=== PATIENT | female | born 2000 | race Caucasian/White ===

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

== ENCOUNTER 2019-07-21 10:58 | Emergency (ER) | payer MEDICAID ==
--- NOTE | 2019-07-21 17:07 | EDM.PDOC ---
ED HPI GENERAL MEDICAL PROBLEM - General Chief Complaint: General Stated Complaint: 6 MON Time Seen by Provider: 07/21/19 11:00 Source of Information: Reports: Patient, Significant Other History Limitations: Reports: No Limitations - History of Present Illness INITIAL COMMENTS - FREE TEXT/NARRATIVE: This is a GA24wk F here for dizziness and nausea. She notes weakness. Denies any fever, no dysuria, no chills. Denies shortness of breath or chest pain. No discharge, or contractions or other pain. 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 ED EXAM, GENERAL - Physical Exam Exam: See Below Exam Limited By: No Limitations General Appearance: Alert, WD/WN, No Apparent Distress Eye Exam: Bilateral Eye: EOMI, PERRL Ears: Normal External Exam Nose: Normal Inspection Throat/Mouth: Normal Inspection Head: Atraumatic, Normocephalic Neck: Normal Inspection Respiratory/Chest: No Respiratory Distress, Lungs Clear, Normal Breath Sounds Cardiovascular: Normal Peripheral Pulses, Regular Rate, Rhythm, Other (FHR 135- 145) GI/Abdominal: Normal Bowel Sounds, Soft Back Exam: Normal Inspection Extremities: Normal Inspection Neurological: Alert, Oriented, CN II-XII Intact Psychiatric: Normal Affect, Normal Mood Course - Vital Signs Last Recorded V/S: Last Vital Signs Temp 36.6 C 07/21/19 11:18 Pulse 84 07/21/19 11:18 Resp 16 07/21/19 11:18 BP 124/65 07/21/19 11:18 Pulse Ox 100 07/21/19 11:18 - Orders/Labs/Meds Orders: Active Orders 24 hr Category Date Time Status CULTURE URINE [RM] Stat Lab 07/21/19 12:20 Received Labs: Laboratory Tests 07/21/19 07/21/19 07/21/19 Range/Units 12:20 12:20 12:20 WBC 10.7 (4.0-11.0) K/uL RBC 3.75 L (3.80-5.80) M/uL Hgb 11.4 L (11.5-16.5) g/dL Hct 33.9 L (37.0-47.0) % MCV 90 (76-96) fL MCH 30.4 (27.0-32.0) pg MCHC 33.6 (31.0-35.0) g/dL RDW 12.9 (11.0-16.0) % Plt Count 284 (150-500) K/uL MPV 10.4 H (6.0-10.0) fL Neut % (Auto) 79.4 H (45.0-70.0) % Lymph % (Auto) 13.0 L (20.0-40.0) % [place] % (Auto) 7.1 (3.0-10.0) % Eos % (Auto) 0.3 L (1.0-5.0) % Baso % (Auto) 0.2 (0.0-0.5) % Neut # (Auto) 8.50 H (2.00-7.50) K/uL Lymph # (Auto) 1.39 L (1.50-4.00) K/uL [place] # (Auto) 0.76 (0.20-0.80) K/uL Eos # (Auto) 0.03 L (0.04-0.40) K/uL Baso # (Auto) 0.02 (0.02-0.10) K/uL Sodium 139 (136-145) mmol/L Potassium 3.2 L (3.5-5.1) mmol/L Chloride 105 (98-107) mmol/L Carbon Dioxide 24.8 (21.0-32.0) mmol/L Anion Gap 12.4 (5.0-15.0) mmol/L BUN 8 (8-26) mg/dL Creatinine 0.56 (0.55-1.02) mg/dL Est Cr Clr Drug Dosing 155.04 mL/min Estimated GFR (MDRD) > 60 (>60) MLS/MIN BUN/Creatinine Ratio 14.3 (6-25) Glucose 76 (74-100) mg/dL Calcium 9.4 (8.5-10.1) mg/dL Total Bilirubin 0.5 (0.0-1.0) mg/dL AST 15 (15-37) U/L ALT 15 (12-78) U/L Alkaline Phosphatase 60 (46-116) U/L Total Protein 6.1 L (6.4-8.2) g/dL Albumin 2.5 L (3.4-5.0) g/dL Globulin 3.6 (2.2-4.2) g/dL Albumin/Globulin Ratio 0.7 L (0.8-2.0) Urine Color Yellow Urine Appearance Clear (CLEAR) Urine pH 7.0 (5.0-8.0) Ur Specific [place] 1.015 (1.003-1.030) Urine Protein Negative (NEGATIVE) mg/dL Urine Glucose (UA) Negative (NEGATIVE) mg/dL Urine Ketones Negative (NEGATIVE) mg/dL Urine Occult Blood Trace-intact H (NEGATIVE) Urine Nitrite Negative (NEGATIVE) Urine Bilirubin Negative (NEGATIVE) Urine Urobilinogen 1.0 (0.2-1.0) E.U./dL Ur Leukocyte Esterase Moderate H (NEGATIVE) Urine RBC 0-5 H /HPF Urine WBC 10-20 H /HPF Ur Squamous Epith Cells Many /HPF Urine Bacteria Occasional /HPF Departure - Departure Time of Disposition: 14:30 Disposition: Home, Self-Care 01 Condition: Good Clinical Impression: Hypokalemia, Vertigo UTI (urinary tract infection) Qualifiers: Urinary tract infection type: acute cystitis Hematuria presence: without hematuria Qualified Code(s): N30.00 - Acute cystitis without hematuria - Discharge Information Prescriptions: cephALEXin [Keflex] 500 mg PO BID #10 cap Instructions: and Urinary Tract Infection Referrals: PCP,None [Primary Care Provider] - Forms: ED Department Discharge Care Plan Goals: Take medications as prescribed. Follow up with primary provider as scheduled. Return or call with any questions or concerns. Sepsis Event Note - Evaluation Sepsis Screening Result: No Definite Risk - Focused Exam Vital Signs: Vital Signs Temp Pulse Resp BP Pulse Ox 07/21/19 11:18 36.6 C 84 16 124/65 100 Date Exam was Performed: 07/21/19 Time Exam was Performed: 17:04 - Problem List & Annotations (1) Hypokalemia SNOMED Code(s): 27108552 Code(s): E87.6 - HYPOKALEMIA Status: Acute (2) UTI (urinary tract infection) SNOMED Code(s): 96482571 Code(s): N39.0 - URINARY TRACT INFECTION, SITE NOT SPECIFIED Status: Acute Qualifiers: Urinary tract infection type: acute cystitis Hematuria presence: without hematuria Qualified Code(s): N30.00 - Acute cystitis without hematuria (3) Vertigo SNOMED Code(s): 844394139 Code(s): R42 - DIZZINESS AND GIDDINESS Status: Acute - Problem List Review Problem List Initiated/Reviewed/Updated: Yes - My Orders Last 24 Hours: My Active Orders 07/21/19 12:20 CULTURE URINE [RM] Stat - Assessment/Plan Last 24 Hours: My Active Orders 07/21/19 12:20 CULTURE URINE [RM] Stat Plan: Counseled on antibiotics and side effects. Discussed f/u with OB and PCP chucky. Discussed rtc or ER if symptoms return or worsen. F/u as needed. Continue [facility] care.
== END 2019-07-21 13:53 | disposition home or self-care (01) ==
LOC: LB.ED 10:58
DX: O23.13 Infections of bladder in pregnancy, third trimester (principal); O99.283 Endocrine, nutritional and metabolic diseases complicating pregnancy, third trimester; E87.6 Hypokalemia; R42 Dizziness and giddiness; Z87.891 Personal history of nicotine dependence; Z91.030 Bee allergy status; Z3A.25 25 weeks gestation of pregnancy
CPT/HCPCS: 36415; 80053; 81001; 85025; 87086; 99283; 99284

== ENCOUNTER 2020-08-16 22:41 | Emergency (ER) | payer MEDICAID ==
[~2020-08-16 22:41] MED LIST: traMADol 50 MG Tab ONE
[2020-08-16] MEDS: GI Cocktail Oral Solution 30 ML PO ONE (23:17)
[2020-08-16] MEDS: Ketorolac 30 MG/ML SDV IM ONE (23:56)
[2020-08-17] MEDS: Ketorolac 30 MG/ML SDV ONE (00:40)
[2020-08-17] MEDS: Pantoprazole 40 MG Tab.CR PO SCH (00:45)
[2020-08-17] MEDS: Dicyclomine 10 MG Cap PO ONE (00:46)
--- NOTE | 2020-08-17 09:04 | EDM.PDOC ---
ED HPI GENERAL MEDICAL PROBLEM - General Chief Complaint: Abdominal Pain Stated Complaint: Abdominal Pain Time Seen by Provider: 08/16/20 23:00 Source of Information: Reports: Patient History Limitations: Reports: No Limitations - History of Present Illness INITIAL COMMENTS - FREE TEXT/NARRATIVE: A 19 y/o fe pt to ER with c/o mid lower epigastric pain & right hypochondrium x 2 months that is getting worse. Rates pain 8/10. Pt states she was seen a while ago in [place] and was told it was GERD and to watch her diet and take antacids. The pain was dull located & non radiating.Nothing makes pain better Or worse Pt has been not eating greasy foods and taking tyl Motrin and Tums without relief. Pt states she also has been taking Pepto Bismol and Milk of magnesia without any relief. Denies any fever ,nausea ,vomiting ,abdominal pain ,chest pain ,shortness of breath,urinary complain Onset: Today, Sudden Duration: Week(s): (8) Location: Reports: Abdomen Quality: Reports: Dull Severity: Moderate Improves with: Reports: None Worsens with: Reports: None Associated Symptoms: Reports: No Other Symptoms Middle Abdomen Pain Score (Numeric/FACES): 8 - Related Data Allergies Allergy/AdvReac Type Severity Reaction Status Date / Time venom-honey bee Allergy Anaphylactic Verified 08/16/20 23:27 [bee venom (honey bee)] Shock Home Meds: Home Meds NK [No Known Home Meds] 08/16/20 [History] Past Medical History Gastrointestinal History: Reports: GERD 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: pt is 6 months today, pt comes to ER with CO dizziness and feeling light headed Social & Family History - Tobacco Use Tobacco Use Status *Q: Never Tobacco User Packs/Tins Daily: 0.5 - Caffeine Use Caffeine Use: Reports: Soda - Recreational Drug Use Recreational Drug Use: No Recreational Drug Type: Reports: Marijuana/Hashish Recreational Drug Use Frequency: Weekly - Living Situation & Occupation Living situation: Reports: with Family Occupation: Student ED ROS GENERAL - Review of Systems Review Of Systems: See Below Constitutional: Reports: No Symptoms Respiratory: Reports: No Symptoms, Shortness of Breath, Cough, Hemoptysis Cardiovascular: Reports: No Symptoms, Chest Pain, Dyspnea on Exertion, Edema GI/Abdominal: Reports: Abdominal Pain Musculoskeletal: Reports: No Symptoms, Neck Pain, Arm Pain Skin: Reports: No Symptoms Neurological: Reports: No Symptoms ED EXAM, GENERAL - Physical Exam Exam: See Below Exam Limited By: No Limitations General Appearance: Alert, WD/WN, No Apparent Distress Head: Atraumatic, Normocephalic Respiratory/Chest: No Respiratory Distress, Lungs Clear, Normal Breath Sounds Cardiovascular: Normal Peripheral Pulses, Regular Rate, Rhythm, No Edema, No Gallop GI/Abdominal: Other (tenderness on lower epigastrium ) Extremities: Normal Inspection, Normal Range of Motion Neurological: Alert, Oriented, CN II-XII Intact Course - Vital Signs Text/Narrative:: 23 year old female w/known h/o GERD came with epigastric pain vital ordered labs ordered CT of abd ordered & revewed urine was positive for Marijuana Injection Toradol i/m given she was not feeling better Spoke with Howard villegas provider , he advised to discharge her home on Protonix,bentyl & pain medication f/u with primary care Disposition-she was discharge home F/U with primary care Last Recorded V/S: Last Vital Signs Temp 98 F 08/16/20 22:57 Pulse 74 08/16/20 22:57 Resp 18 08/16/20 22:57 BP 130/91 H 08/16/20 22:57 Pulse Ox 100 08/16/20 22:57 - Orders/Labs/Meds Orders: Active Orders 24 hr Category Date Time Status Abdomen Pelvis wo Cont [CT] Stat Exams 08/16/20 23:14 Taken Labs: Laboratory Tests 08/16/20 08/16/20 08/16/20 Range/Units 23:13 23:14 23:30 WBC 7.4 D (4.0-11.0) K/uL RBC 4.49 (3.80-5.80) M/uL Hgb 13.3 (11.5-16.5) g/dL Hct 39.6 (37.0-47.0) % MCV 88 (76-96) fL MCH 29.6 (27.0-32.0) pg MCHC 33.6 (31.0-35.0) g/dL RDW 12.6 (11.0-16.0) % Plt Count 248 (150-500) K/uL MPV 10.6 H (6.0-10.0) fL Neut % (Auto) 54.6 (45.0-70.0) % Lymph % (Auto) 36.0 (20.0-40.0) % [place] % (Auto) 8.0 (3.0-10.0) % Eos % (Auto) 0.9 L (1.0-5.0) % Baso % (Auto) 0.5 (0.0-0.5) % Neut # (Auto) 4.02 (2.00-7.50) K/uL Lymph # (Auto) 2.65 (1.50-4.00) K/uL [place] # (Auto) 0.59 (0.20-0.80) K/uL Eos # (Auto) 0.07 (0.04-0.40) K/uL Baso # (Auto) 0.04 (0.02-0.10) K/uL Sodium 141 (136-145) mmol/L Potassium 4.0 D (3.5-5.1) mmol/L Chloride 105 (98-107) mmol/L Carbon Dioxide 29.1 (21.0-32.0) mmol/L Anion Gap 10.9 (5.0-15.0) mmol/L BUN 12 D (8-26) mg/dL Creatinine 0.89 D (0.55-1.02) mg/dL Est Cr Clr Drug Dosing 93.86 mL/min Estimated GFR (MDRD) > 60 (>60) MLS/MIN BUN/Creatinine Ratio 13.5 (6-25) Glucose 96 (74-100) mg/dL Calcium 8.5 (8.5-10.1) mg/dL Total Bilirubin 0.5 (0.0-1.0) mg/dL AST 13 L (15-37) U/L ALT 21 (12-78) U/L Alkaline Phosphatase 65 (46-116) U/L Total Protein 6.9 (6.4-8.2) g/dL Albumin 3.6 (3.4-5.0) g/dL Globulin 3.3 (2.2-4.2) g/dL Albumin/Globulin Ratio 1.1 (0.8-2.0) Lipase 163 (73-393) U/L Urine Color Urine Appearance (CLEAR) Urine pH (5.0-8.0) Ur Specific [place] (1.003-1.030) Urine Protein (NEGATIVE) mg/dL Urine Glucose (UA) (NEGATIVE) mg/dL Urine Ketones (NEGATIVE) mg/dL Urine Occult Blood (NEGATIVE) Urine Nitrite (NEGATIVE) Urine Bilirubin (NEGATIVE) Urine Urobilinogen (0.2-1.0) E.U./dL Ur Leukocyte Esterase (NEGATIVE) Urine HCG, Qual Negative (NEGATIVE) Urine Opiates Screen (NEGATIVE) Ur Oxycodone Screen (NEGATIVE) Urine Methadone Screen (NEGATIVE) Ur Barbiturates Screen (NEGATIVE) Ur Tricyclics Screen (NEGATIVE) Ur Phencyclidine Scrn (NEGATIVE) Ur Amphetamine Screen (NEGATIVE) U Methamphetamines Scrn (NEGATIVE) Urine MDMA Screen (NEGATIVE) U Benzodiazepines Scrn (NEGATIVE) U Cocaine Metab Screen (NEGATIVE) U Marijuana (THC) Screen (NEGATIVE) 08/16/20 08/16/20 Range/Units 23:30 23:33 WBC (4.0-11.0) K/uL RBC (3.80-5.80) M/uL Hgb (11.5-16.5) g/dL Hct (37.0-47.0) % MCV (76-96) fL MCH (27.0-32.0) pg MCHC (31.0-35.0) g/dL RDW (11.0-16.0) % Plt Count (150-500) K/uL MPV (6.0-10.0) fL Neut % (Auto) (45.0-70.0) % Lymph % (Auto) (20.0-40.0) % [place] % (Auto) (3.0-10.0) % Eos % (Auto) (1.0-5.0) % Baso % (Auto) (0.0-0.5) % Neut # (Auto) (2.00-7.50) K/uL Lymph # (Auto) (1.50-4.00) K/uL [place] # (Auto) (0.20-0.80) K/uL Eos # (Auto) (0.04-0.40) K/uL Baso # (Auto) (0.02-0.10) K/uL Sodium (136-145) mmol/L Potassium (3.5-5.1) mmol/L Chloride (98-107) mmol/L Carbon Dioxide (21.0-32.0) mmol/L Anion Gap (5.0-15.0) mmol/L BUN (8-26) mg/dL Creatinine (0.55-1.02) mg/dL Est Cr Clr Drug Dosing mL/min Estimated GFR (MDRD) (>60) MLS/MIN BUN/Creatinine Ratio (6-25) Glucose (74-100) mg/dL Calcium (8.5-10.1) mg/dL Total Bilirubin (0.0-1.0) mg/dL AST (15-37) U/L ALT (12-78) U/L Alkaline Phosphatase (46-116) U/L Total Protein (6.4-8.2) g/dL Albumin (3.4-5.0) g/dL Globulin (2.2-4.2) g/dL Albumin/Globulin Ratio (0.8-2.0) Lipase (73-393) U/L Urine Color Yellow Urine Appearance Clear (CLEAR) Urine pH 6.0 (5.0-8.0) Ur Specific [place] >= 1.030 (1.003-1.030) Urine Protein Negative (NEGATIVE) mg/dL Urine Glucose (UA) Negative (NEGATIVE) mg/dL Urine Ketones Negative (NEGATIVE) mg/dL Urine Occult Blood Negative (NEGATIVE) Urine Nitrite Negative (NEGATIVE) Urine Bilirubin Negative (NEGATIVE) Urine Urobilinogen 1.0 (0.2-1.0) E.U./dL Ur Leukocyte Esterase Negative (NEGATIVE) Urine HCG, Qual (NEGATIVE) Urine Opiates Screen Negative (NEGATIVE) Ur Oxycodone Screen Negative (NEGATIVE) Urine Methadone Screen Negative (NEGATIVE) Ur Barbiturates Screen Negative (NEGATIVE) Ur Tricyclics Screen Negative (NEGATIVE) Ur Phencyclidine Scrn Negative (NEGATIVE) Ur Amphetamine Screen Negative (NEGATIVE) U Methamphetamines Scrn Negative (NEGATIVE) Urine MDMA Screen Negative (NEGATIVE) U Benzodiazepines Scrn Negative (NEGATIVE) U Cocaine Metab Screen Negative (NEGATIVE) U Marijuana (THC) Screen Positive H (NEGATIVE) Meds: Medications Discontinued Medications Generic Name Dose Route Start Last Admin Trade Name Freq PRN Reason Stop Dose Admin Al Hydroxide/Mg Hydroxide 30 ml 08/16/20 23:15 08/16/20 23:17 Gi Cocktail PO 08/16/20 23:16 30 ml ONETIME ONE Administration Dicyclomine HCl 10 mg 08/17/20 00:40 08/17/20 00:46 Bentyl PO 08/17/20 00:41 Not Given ONETIME ONE Ketorolac Tromethamine 15 mg 08/16/20 23:51 08/16/20 23:56 Toradol IM 08/16/20 23:52 15 mg ONETIME ONE Administration Ketorolac Tromethamine Confirm 08/17/20 00:02 08/17/20 00:40 Toradol Administered 08/17/20 00:03 Not Given Dose 30 mg .ROUTE .STK-MED ONE Pantoprazole Sodium 40 mg 08/17/20 00:45 08/17/20 00:45 Protonix PO 40 mg DAILY MARTIN Administration Departure - Departure Time of Disposition: 22:00 Disposition: Home, Self-Care 01 Clinical Impression: Epigastric pain determined by examination Abdominal pain Qualifiers: Abdominal location: epigastric Qualified Code(s): R10.13 - Epigastric pain - Discharge Information *PRESCRIPTION DRUG MONITORING PROGRAM REVIEWED*: No *COPY OF PRESCRIPTION DRUG MONITORING REPORT IN PATIENT ROLDAN: No Instructions: Abdominal Pain, Adult, [id number] Referrals: PCP,None [Primary Care Provider] - Forms: ED Department Discharge Care Plan Goals: take protonix and [place] as directed. Follow up with your primary team primary care physician as needed. Sepsis Event Note (ED) - Evaluation Sepsis Screening Result: No Definite Risk - Problem List & Annotations (1) Epigastric abdominal pain SNOMED Code(s): 76231365 Code(s): R10.13 - EPIGASTRIC PAIN Status: Acute Priority: Medium Onset Date: ~08/16/20 - Problem List Review Problem List Initiated/Reviewed/Updated: No - Assessment/Plan Plan: F/u primary care avoid spicy diet RT to ED if pain persist
--- NOTE | 2020-08-19 07:15 | CT ---
Date of Service: 08/16/20 Clinical Data: abd pain UNENHANCED ABDOMEN AND PELVIC CT: Multislice acquisition through the abdomen and pelvis without IV or oral contrast was performed. Comparison is made to a prior exam dated 10/12/14. The lung bases are clear. The heart size is normal. The unenhanced liver appears normal. The gallbladder is contracted. No calcified gallstones noted. The spleen appears normal. The pancreas appears normal. The right and left adrenals appear normal. The is a 2 mm nonobstructing renal calculus on the lower pole of the right kidney. The right and left kidneys otherwise appear normal. No hydronephrosis or hydroureter. The bladder is partially fluid filled. There is apparent diffuse bladder wall thickening. This may be related to nondistention. Cystitis should be considered. No evidence of appendicitis. No free air. There is a small amount of free fluid in the pelvis. No dilated loops of bowel. No adenopathy. No aortic aneurysm. No other significant findings. [id number] [facility]
== END 2020-08-17 01:01 | disposition home or self-care (01) ==
LOC: LB.ED 22:41
DX: O99.891 Other specified diseases and conditions complicating pregnancy (principal); R10.13 Epigastric pain; Z91.030 Bee allergy status; Z72.0 Tobacco use
CPT/HCPCS: 36415; 74176; 80053; 80307; 81003; 81025; 83690; 85025; 96372; 99284; A9270; J1885; 99283

== ENCOUNTER 2020-09-06 22:05 | Emergency (ER) | payer MEDICAID ==
[2020-09-06] MEDS ORDERED: Sodium Chloride 0.9% 10 ML Syringe FLUSH PRN (22:07)
[2020-09-06] MEDS ORDERED: Sodium Chloride 0.9% 50 ML SDV FLUSH ONE (22:26)
[2020-09-06] MEDS ORDERED: Iopamidol 612 MG/ML 100 ML Bottle IV SCH (22:30)
[2020-09-06] MEDS ORDERED: Acetaminophen/HYDROcodone 325-5 MG Tab PO ONE (22:36)
[2020-09-06] MEDS ORDERED: hydrOXYzine HCl 25 MG Tab PO ONE (22:36)
[2020-09-06] MEDS ORDERED: Dicyclomine 20 MG/2 ML SDV IM ONE (22:36)
--- NOTE | 2020-09-06 22:50 | EDM.PDOC ---
ED HPI GENERAL MEDICAL PROBLEM - General Chief Complaint: Gastrointestinal Problem Stated Complaint: ABDOMINAL PAIN Time Seen by Provider: 09/06/20 22:30 Source of Information: Reports: Patient, Old Records, RN History Limitations: Reports: No Limitations - History of Present Illness INITIAL COMMENTS - FREE TEXT/NARRATIVE: 19 YOHHF here for recurring mid to upper abdominal pain. Patient was recently seen and treated here in the ED 3 weeks ago for the same issue. She failed to follow provider treatment plan and quit taking medications prescribed. She has inspiratory and expiratory wheezing, Normal HRR. No Fever, N, V. No guarding or rebound tenderness. No cough or chest congestion. No ANDRADE. 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) (improved diet, OTC antiacids) Lower Abdomen Pain Score (Numeric/FACES): 7 Abdomen Pain Score (Numeric/FACES): 7 - Related Data Allergies Allergy/AdvReac Type Severity Reaction Status Date / Time venom-honey bee Allergy Anaphylactic Verified 08/16/20 23:27 [bee venom (honey bee)] Shock Home Meds: Home Meds NK [No Known Home Meds] 08/16/20 [History] Past Medical History Gastrointestinal History: Reports: GERD 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 GI/Abdominal: Reports: Abdominal Pain, Decreased Appetite ED EXAM, GI/ABD - Physical Exam Exam: See Below Exam Limited By: No Limitations General Appearance: Alert, WD/WN, No Apparent Distress Ears: Normal External Exam Nose: Normal Inspection, Normal Mucosa Throat/Mouth: Normal Inspection, Normal Lips, Normal Teeth Head: Atraumatic, Normocephalic Neck: Normal Inspection, Supple, Non-Tender Respiratory/Chest: No Respiratory Distress, Lungs Clear, Normal Breath Sounds Cardiovascular: Normal Peripheral Pulses, Regular Rate, Rhythm, No Edema GI/Abdominal Exam: Normal Bowel Sounds, Soft, Non-Tender, No Distention Back Exam: Normal Inspection, Full Range of Motion Extremities: Normal Inspection, Normal Range of Motion, Non-Tender Neurological: Alert, Oriented, CN II-XII Intact Psychiatric: Normal Affect, Normal Mood Skin Exam: Warm, Dry, Intact, Normal Color Lymphatic: No Adenopathy Course - Vital Signs Last Recorded V/S: Last Vital Signs Temp 36.6 C 09/06/20 22:58 Pulse 84 09/06/20 22:58 Resp 18 09/06/20 22:58 BP 111/75 09/06/20 22:58 Pulse Ox 100 09/06/20 22:58 - Orders/Labs/Meds Orders: Active Orders 24 hr Category Date Time Status Abdomen Pelvis w Cont [CT] Stat Exams 09/06/20 22:05 Ordered Chest 2V [CR] Stat Exams 09/06/20 22:47 Taken HEPATITIS PANEL (4) Stat Lab 09/06/20 23:18 Ordered Iopamidol [Isovue-300 (61%)] Med 09/06/20 22:30 Active 100 ml IV . DIRECTED Sodium Chloride 0.9% [Saline Flush] Med 09/06/20 22:07 Active 10 ml FLUSH ASDIRECTED PRN Peripheral IV Insertion Adult [OM.PC] Routine Oth 09/06/20 22:07 Ordered Medication Orders Iopamidol (Isovue-300 (61%)) 100 ml IV . DIRECTED MARTIN Last Admin: 09/06/20 22:36 Dose: 100 ml Documented by: JANE Sodium Chloride (Saline Flush) 10 ml FLUSH ASDIRECTED PRN PRN Reason: Keep Vein Open Labs: Laboratory Tests 09/06/20 09/06/20 09/06/20 Range/Units 22:15 22:15 22:25 WBC 7.3 (4.0-11.0) K/uL RBC 4.56 (3.80-5.80) M/uL Hgb 13.7 (11.5-16.5) g/dL Hct 40.6 (37.0-47.0) % MCV 89 (76-96) fL MCH 30.0 (27.0-32.0) pg MCHC 33.7 (31.0-35.0) g/dL RDW 12.6 (11.0-16.0) % Plt Count 219 (150-500) K/uL MPV 10.8 H (6.0-10.0) fL Neut % (Auto) 63.2 (45.0-70.0) % Lymph % (Auto) 25.7 (20.0-40.0) % Bee % (Auto) 9.8 (3.0-10.0) % Eos % (Auto) 1.0 (1.0-5.0) % Baso % (Auto) 0.3 (0.0-0.5) % Neut # (Auto) 4.62 (2.00-7.50) K/uL Lymph # (Auto) 1.88 (1.50-4.00) K/uL Bee # (Auto) 0.72 (0.20-0.80) K/uL Eos # (Auto) 0.07 (0.04-0.40) K/uL Baso # (Auto) 0.02 (0.02-0.10) K/uL Sodium 141 (136-145) mmol/L Potassium 3.4 L (3.5-5.1) mmol/L Chloride 105 (98-107) mmol/L Carbon Dioxide 29.4 (21.0-32.0) mmol/L Anion Gap 10.0 (5.0-15.0) mmol/L BUN 10 (8-26) mg/dL Creatinine 0.87 (0.55-1.02) mg/dL Est Cr Clr Drug Dosing TNP Estimated GFR (MDRD) > 60 (>60) MLS/MIN BUN/Creatinine Ratio 11.5 (6-25) Glucose 83 (74-100) mg/dL Calcium 9.0 (8.5-10.1) mg/dL Total Bilirubin 0.5 (0.0-1.0) mg/dL AST 14 L (15-37) U/L ALT 18 (12-78) U/L Alkaline Phosphatase 75 (46-116) U/L Total Protein 7.5 (6.4-8.2) g/dL Albumin 3.8 (3.4-5.0) g/dL Globulin 3.7 (2.2-4.2) g/dL Albumin/Globulin Ratio 1.0 (0.8-2.0) Urine Color Yellow Urine Appearance Cloudy (CLEAR) Urine pH 7.5 (5.0-8.0) Ur Specific [place] 1.025 (1.003-1.030) Urine Protein Negative (NEGATIVE) mg/dL Urine Glucose (UA) Negative (NEGATIVE) mg/dL Urine Ketones Negative (NEGATIVE) mg/dL Urine Occult Blood Negative (NEGATIVE) Urine Nitrite Negative (NEGATIVE) Urine Bilirubin Small H (NEGATIVE) Urine Urobilinogen 4.0 H (0.2-1.0) E.U./dL Ur Leukocyte Esterase Trace H (NEGATIVE) Urine RBC Not seen /HPF Urine WBC 5-10 H /HPF Ur Squamous Epith Cells Moderate /HPF Amorphous Sediment Moderate /HPF Urine Bacteria Few /HPF Urine HCG, Qual (NEGATIVE) 09/06/20 Range/Units 22:25 WBC (4.0-11.0) K/uL RBC (3.80-5.80) M/uL Hgb (11.5-16.5) g/dL Hct (37.0-47.0) % MCV (76-96) fL MCH (27.0-32.0) pg MCHC (31.0-35.0) g/dL RDW (11.0-16.0) % Plt Count (150-500) K/uL MPV (6.0-10.0) fL Neut % (Auto) (45.0-70.0) % Lymph % (Auto) (20.0-40.0) % Bee % (Auto) (3.0-10.0) % Eos % (Auto) (1.0-5.0) % Baso % (Auto) (0.0-0.5) % Neut # (Auto) (2.00-7.50) K/uL Lymph # (Auto) (1.50-4.00) K/uL Bee # (Auto) (0.20-0.80) K/uL Eos # (Auto) (0.04-0.40) K/uL Baso # (Auto) (0.02-0.10) K/uL Sodium (136-145) mmol/L Potassium (3.5-5.1) mmol/L Chloride (98-107) mmol/L Carbon Dioxide (21.0-32.0) mmol/L Anion Gap (5.0-15.0) mmol/L BUN (8-26) mg/dL Creatinine (0.55-1.02) mg/dL Est Cr Clr Drug Dosing Estimated GFR (MDRD) (>60) MLS/MIN BUN/Creatinine Ratio (6-25) Glucose (74-100) mg/dL Calcium (8.5-10.1) mg/dL Total Bilirubin (0.0-1.0) mg/dL AST (15-37) U/L ALT (12-78) U/L Alkaline Phosphatase (46-116) U/L Total Protein (6.4-8.2) g/dL Albumin (3.4-5.0) g/dL Globulin (2.2-4.2) g/dL Albumin/Globulin Ratio (0.8-2.0) Urine Color Urine Appearance (CLEAR) Urine pH (5.0-8.0) Ur Specific [place] (1.003-1.030) Urine Protein (NEGATIVE) mg/dL Urine Glucose (UA) (NEGATIVE) mg/dL Urine Ketones (NEGATIVE) mg/dL Urine Occult Blood (NEGATIVE) Urine Nitrite (NEGATIVE) Urine Bilirubin (NEGATIVE) Urine Urobilinogen (0.2-1.0) E.U./dL Ur Leukocyte Esterase (NEGATIVE) Urine RBC /HPF Urine WBC /HPF Ur Squamous Epith Cells /HPF Amorphous Sediment /HPF Urine Bacteria /HPF Urine HCG, Qual Negative (NEGATIVE) Meds: Medications Generic Name Dose Route Start Last Admin Trade Name Freq PRN Reason Stop Dose Admin Iopamidol 100 ml 09/06/20 22:30 09/06/20 22:36 Isovue-300 (61%) IV 100 ml . DIRECTED MARTIN Administration Sodium Chloride 10 ml 09/06/20 22:07 Saline Flush FLUSH ASDIRECTED PRN Keep Vein Open Discontinued Medications Generic Name Dose Route Start Last Admin Trade Name Freq PRN Reason Stop Dose Admin Hydrocodone Bitart/Acetaminophen 1 tab 09/06/20 22:36 09/06/20 22:35 [place] 325-5 Mg PO 09/06/20 22:37 1 tab ONETIME ONE Administration Dicyclomine HCl 20 mg 09/06/20 22:36 09/06/20 22:53 Bentyl IM 09/06/20 22:37 Not Given ONETIME ONE Hydroxyzine HCl 25 mg 09/06/20 22:36 09/06/20 22:45 Atarax PO 09/06/20 22:37 25 mg ONETIME ONE Administration Pantoprazole Sodium 40 mg 09/06/20 22:54 09/06/20 22:51 Protonix Iv IVPUSH 09/06/20 22:55 40 mg ONETIME ONE Administration Sodium Chloride 50 ml 09/06/20 22:26 09/06/20 22:36 Normal Saline FLUSH 09/06/20 22:27 50 ml ONETIME ONE Administration Departure - Departure Time of Disposition: 23:30 Disposition: Home, Self-Care 01 Condition: Good Clinical Impression: Inflammatory liver disease, unspecified IBS (irritable bowel syndrome) Qualifiers: Irritable bowel syndrome type: with diarrhea Qualified Code(s): K58.0 - Irritable bowel syndrome with diarrhea - Discharge Information *PRESCRIPTION DRUG MONITORING PROGRAM REVIEWED*: Not Applicable Instructions: Irritable Bowel Syndrome, Adult Forms: ED Department Discharge Additional Instructions: Continue with Protonix and Bentyl. Ultram for pain. Continue healthy diet, and increase water intake. Follow up with PCP or GI as OP. RT to ED for new or worsening symptoms. Gastroenterology specialist evaluation is highly recommended based off labs. Sepsis Event Note (ED) - Focused Exam Vital Signs: Vital Signs Temp Pulse Resp BP Pulse Ox 09/06/20 22:58 36.6 C 84 18 111/75 100 - My Orders Last 24 Hours: My Active Orders 09/06/20 22:05 Abdomen Pelvis w Cont [CT] Stat 09/06/20 22:07 Sodium Chloride 0.9% [Saline Flush] 10 ml FLUSH ASDIRECTED PRN Peripheral IV Insertion Adult [OM.PC] Routine 09/06/20 22:30 Iopamidol [Isovue-300 (61%)] 100 ml IV . DIRECTED 09/06/20 22:47 Chest 2V [CR] Stat 09/06/20 23:18 HEPATITIS PANEL (4) Stat - Assessment/Plan Last 24 Hours: My Active Orders 09/06/20 22:05 Abdomen Pelvis w Cont [CT] Stat 09/06/20 22:07 Sodium Chloride 0.9% [Saline Flush] 10 ml FLUSH ASDIRECTED PRN Peripheral IV Insertion Adult [OM.PC] Routine 09/06/20 22:30 Iopamidol [Isovue-300 (61%)] 100 ml IV . DIRECTED 09/06/20 22:47 Chest 2V [CR] Stat 09/06/20 23:18 HEPATITIS PANEL (4) Stat Assessment:: IBS Plan: Lesa Echeverria.
[2020-09-06] MEDS ORDERED: Pantoprazole 40 MG Vial IVPUSH ONE (22:54)
[2020-09-06] MEDS ORDERED: Morphine 2 MG/ML SYRINGE IVPUSH ONE (23:57)
--- NOTE | 2020-09-07 14:54 | CT ---
CLINICAL DATA: Abdominal pain. ENHANCED ABDOMEN AND PELVIC CT, 06 SEPTEMBER 2020: Multislice acquisition through the abdomen and pelvis with IV, but without oral contrast was performed. No priors. The lung bases are clear. The heart size is normal. The liver is normal size with homogeneous attenuation. No focal hepatic lesions. The gallbladder appears normal. No biliary duct dilatation. The spleen appears normal. The pancreas appears normal. The right and left adrenals appear normal. The right and left kidneys appear normal and enhance symmetrically. No hydronephrosis or hydroureter. There is a small amount of fluid within the bladder. There is diffuse bladder wall thickening. This may be related to non-distention. Cystitis should be considered. The appendix is not clearly seen. No evidence of appendicitis. There is a large amount of stool noted within the cecum, ascending colon, and transverse colon. No free air. No free fluid. No dilated loops of bowel. No adenopathy. No aortic aneurysm or dissection. No other significant findings. Job: [id number] [facility]
--- NOTE | 2020-09-07 14:56 | CR ---
CLINICAL DATA: Abdominal pain. PA AND LATERAL CHEST, 06 SEPTEMBER 2020: The heart size is normal. The lungs are clear. No pneumothorax. No pleural effusions. No evidence of acute intrathoracic disease. Job: [id number] [facility]
[2020-09-11 14:09] LABS: HBSAG SCREEN Negative (Negative); HEP A AB, IGM Negative (Negative); HEP B CORE AB, IGM Negative (Negative); HEP C VIRUS AB <0.1 s/co ratio (0.0-0.9)
== END 2020-09-06 23:55 | disposition home or self-care (01) ==
LOC: LB.ED 22:05
DX: K58.0 Irritable bowel syndrome with diarrhea (principal); K75.9 Inflammatory liver disease, unspecified; Z91.030 Bee allergy status
CPT/HCPCS: 36415; 71046; 74177; 80053; 80074; 81001; 81025; 85025; 96374; 96375; 99284; 99284-25; A9270-GY; C9113; J2270; Q9967

== ENCOUNTER 2021-02-17 11:24 | Emergency (ER) | payer MEDICAID ==
[2021-02-17] MEDS ORDERED: Sodium Chloride 0.9% 10 ML Syringe FLUSH PRN (11:49)
--- NOTE | 2021-02-17 11:52 | EDM.PDOC ---
ED HPI GENERAL MEDICAL PROBLEM - General Chief Complaint: General Stated Complaint: STOMACH PAIN AND Time Seen by Provider: 02/17/21 11:35 Source of Information: Reports: Patient History Limitations: Reports: No Limitations - History of Present Illness INITIAL COMMENTS - FREE TEXT/NARRATIVE: patient presented to the ER with a c/o nausea/emesis for 1 weeks. She is 18 weeks . no fever or chills. no diarrhea or loose stool. Reports similar problems with her first . no SOB or cough. 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: pt is 6 months today, pt comes to ER with CO dizziness and feeling light headed Social & Family History - Family History Family Medical History: No Pertinent Family History - Caffeine Use Caffeine Use: Reports: Coffee, Energy Drinks, Soda - Living Situation & Occupation Living situation: Reports: with Family Occupation: Student ED ROS GENERAL - Review of Systems Review Of Systems: See Below Constitutional: Reports: No Symptoms HEENT: Reports: No Symptoms Respiratory: Reports: No Symptoms Cardiovascular: Reports: No Symptoms GI/Abdominal: Reports: Nausea Musculoskeletal: Reports: No Symptoms Skin: Reports: No Symptoms Neurological: Reports: No Symptoms ED EXAM, GENERAL - Physical Exam Exam: See Below Exam Limited By: No Limitations General Appearance: Alert, WD/WN, No Apparent Distress Eye Exam: Bilateral Eye: EOMI, PERRL Head: Atraumatic Respiratory/Chest: No Respiratory Distress, Lungs Clear Cardiovascular: Normal Peripheral Pulses, Regular Rate, Rhythm GI/Abdominal: Normal Bowel Sounds, Soft, Non-Tender Extremities: Normal Inspection Neurological: Alert, Oriented Course - Vital Signs Last Recorded V/S: Last Vital Signs Temp 36.6 C 02/17/21 11:56 Pulse 80 02/17/21 11:56 Resp 16 02/17/21 11:56 BP 100/68 02/17/21 11:56 Pulse Ox 98 02/17/21 11:56 - Orders/Labs/Meds Orders: Active Orders 24 hr Category Date Time Status CULTURE URINE [RM] Urgent Lab 02/17/21 12:25 Received Sodium Chloride 0.9% [Normal Saline] 1,000 ml Med 02/17/21 12:00 Active IV ASDIRECTED Sodium Chloride 0.9% [Saline Flush] Med 02/17/21 11:49 Active 10 ml FLUSH ASDIRECTED PRN Saline Lock Insert [OM.PC] Routine Oth 02/17/21 11:49 Ordered Medication Orders Sodium Chloride (Normal Saline) 1,000 mls @ 999 mls/hr IV ASDIRECTED MARTIN Last Admin: 02/17/21 11:57 Dose: 999 mls/hr Documented by: BERT Sodium Chloride (Sodium Chloride 0.9% 10 Ml Syringe) 10 ml FLUSH ASDIRECTED PRN PRN Reason: Keep Vein Open Labs: Laboratory Tests 02/17/21 02/17/21 02/17/21 Range/Units 11:49 12:00 12:25 WBC 8.5 (4.0-11.0) K/uL RBC 4.20 (3.80-5.80) M/uL Hgb 12.7 (11.5-16.5) g/dL Hct 37.2 (37.0-47.0) % MCV 89 (76-96) fL MCH 30.2 (27.0-32.0) pg MCHC 34.1 (31.0-35.0) g/dL RDW 12.6 (11.0-16.0) % Plt Count 240 (150-500) K/uL MPV 10.2 H (6.0-10.0) fL Sodium 137 (136-145) mmol/L Potassium 3.7 (3.5-5.1) mmol/L Chloride 104 (98-107) mmol/L Carbon Dioxide 23.6 (21.0-32.0) mmol/L Anion Gap 13.1 (5.0-15.0) mmol/L BUN 8 (8-26) mg/dL Creatinine 0.62 D (0.55-1.02) mg/dL Est Cr Clr Drug Dosing 133.61 mL/min Estimated GFR (MDRD) > 60 (>60) MLS/MIN BUN/Creatinine Ratio 12.9 (6-25) Glucose 82 (74-100) mg/dL Calcium 8.3 L (8.5-10.1) mg/dL Urine Color Yellow Urine Appearance Cloudy (CLEAR) Urine pH 8.5 H (5.0-8.0) Ur Specific [place] 1.020 (1.003-1.030) Urine Protein Trace H (NEGATIVE) mg/dL Urine Glucose (UA) Negative (NEGATIVE) mg/dL Urine Ketones Negative (NEGATIVE) mg/dL Urine Occult Blood Negative (NEGATIVE) Urine Nitrite Negative (NEGATIVE) Urine Bilirubin Negative (NEGATIVE) Urine Urobilinogen 1.0 (0.2-1.0) E.U./dL Ur Leukocyte Esterase Large H (NEGATIVE) Urine RBC 0-5 H /HPF Urine WBC 75-100 H /HPF Urine WBC Clumps Moderate /HPF Ur Squamous Epith Cells Moderate /HPF Amorphous Sediment Numerous /HPF Urine Bacteria Moderate H /HPF Meds: Medications Generic Name Dose Route Start Last Admin Trade Name Freq PRN Reason Stop Dose Admin Sodium Chloride 1,000 mls @ 999 mls/hr 02/17/21 12:00 02/17/21 11:57 Normal Saline IV 999 mls/hr ASDIRECTED MARTIN Administration Sodium Chloride 10 ml 02/17/21 11:49 Sodium Chloride 0.9% 10 Ml Syringe FLUSH ASDIRECTED PRN Keep Vein Open Discontinued Medications Generic Name Dose Route Start Last Admin Trade Name Freq PRN Reason Stop Dose Admin Ondansetron HCl 4 mg 02/17/21 11:49 02/17/21 11:58 Ondansetron 4 Mg Tab.Dis PO 02/17/21 11:50 4 mg ONETIME ONE Administration Ondansetron HCl Confirm 02/17/21 12:09 02/17/21 12:02 Ondansetron 4 Mg Tab.Dis Administered 02/17/21 12:10 Not Given Dose 4 mg .ROUTE .STK-MED ONE - Re-Assessments/Exams Free Text/Narrative Re-Assessment/Exam: vitals WNL heart tone - checked by RN - WNL IV line was started - PO zofran - helped with nausea IVF fluids bolus labs were ordered - no significan abnormalities UA ++ WBC, LEs and bacteria Departure - Departure Time of Disposition: 13:07 Disposition: Home, Self-Care 01 Condition: Good Clinical Impression: UTI (urinary tract infection) Qualifiers: Urinary tract infection type: acute cystitis Hematuria presence: without hematuria Qualified Code(s): N30.00 - Acute cystitis without hematuria - Discharge Information *PRESCRIPTION DRUG MONITORING PROGRAM REVIEWED*: Not Applicable *COPY OF PRESCRIPTION DRUG MONITORING REPORT IN PATIENT [place]: Not Applicable Prescriptions: Amoxicillin 500 mg PO BID #14 tab Ondansetron [Zofran ODT] 4 mg PO Q6H PRN #10 tab.dis PRN Reason: Nausea Instructions: Urinary Tract Infection, Adult, and Urinary Tract Infection Referrals: PCP,None [Primary Care Provider] - Forms: ED Department Discharge Additional Instructions: - increase fluids intake - take oral antibiotics as prescribed - follow up with your PCP in 1-2 weeks as needed - return to the ER if symptoms got worse or any concerns Sepsis Event Note (ED) - Evaluation Sepsis Screening Result: No Definite Risk - Focused Exam Vital Signs: Vital Signs Temp Pulse Resp BP Pulse Ox 02/17/21 11:56 36.6 C 80 16 100/68 98 02/17/21 11:38 36.6 C 87 18 101/68 100 - Problem List & Annotations (1) UTI (urinary tract infection) SNOMED Code(s): 12701918 Code(s): N39.0 - URINARY TRACT INFECTION, SITE NOT SPECIFIED Status: Acute Priority: Low Current Visit: Yes Qualifiers: Urinary tract infection type: acute cystitis Hematuria presence: without hematuria Qualified Code(s): N30.00 - Acute cystitis without hematuria - Problem List Review Problem List Initiated/Reviewed/Updated: Yes - My Orders Last 24 Hours: My Active Orders 02/17/21 11:49 Sodium Chloride 0.9% [Saline Flush] 10 ml FLUSH ASDIRECTED PRN Saline Lock Insert [OM.PC] Routine 02/17/21 12:00 Sodium Chloride 0.9% [Normal Saline] 1,000 ml IV ASDIRECTED 02/17/21 12:25 CULTURE URINE [RM] Urgent - Assessment/Plan Last 24 Hours: My Active Orders 02/17/21 11:49 Sodium Chloride 0.9% [Saline Flush] 10 ml FLUSH ASDIRECTED PRN Saline Lock Insert [OM.PC] Routine 02/17/21 12:00 Sodium Chloride 0.9% [Normal Saline] 1,000 ml IV ASDIRECTED 02/17/21 12:25 CULTURE URINE [RM] Urgent Plan: - increase fluids intake - take oral antibiotics as prescribed - follow up with your PCP in 1-2 weeks as needed - return to the ER if symptoms got worse or any concerns
[2021-02-17] MEDS: Sodium Chloride 0.9% 1,000 ML IV SCH (11:57)
[2021-02-17] MEDS: Ondansetron 4 MG Tab.DIS PO ONE (11:58)
[2021-02-17] MEDS: Ondansetron 4 MG Tab.DIS ONE (12:02)
== END 2021-02-17 13:12 | disposition home or self-care (01) ==
LOC: LB.ED 11:24
DX: O23.12 Infections of bladder in pregnancy, second trimester (principal); Z91.030 Bee allergy status; Z3A.18 18 weeks gestation of pregnancy
CPT/HCPCS: 36415; 80048; 81001; 85027; 87086; 99284; A9270; J7030